=== PATIENT | female | born 1960 | race Two or more races ===

== ENCOUNTER 2017-08-08 11:51 | Emergency (ER) | payer OTHER ==
[~2017-08-08] VITALS: Ht 165.1 cm; Wt 72.6 kg
[2017-08-08 11:51] VITALS: BP 121/77
[2017-08-08] MEDS ORDERED: ACETAMINOPHEN ES 500 MG TABLET PO ONE (12:00)
[2017-08-08] MEDS ORDERED: ACETAMINOPHEN ES 500 MG TABLET ONE (12:05)
== END 2017-08-08 13:30 | disposition left against medical advice (07) ==
LOC: ER 11:51
DX: S90.31XA Contusion of right foot, initial encounter (principal); E03.9 Hypothyroidism, unspecified; Z88.0 Allergy status to penicillin; Z88.2 Allergy status to sulfonamides; V43.52XA Car driver injured in collision with other type car in traffic accident, initial encounter; Y93.89 Activity, other specified; Y92.410 Unspecified street and highway as the place of occurrence of the external cause; Y99.8 Other external cause status
CPT/HCPCS: 73630; 99284; A4606; Z7610